=== PATIENT | female | born 1990 | race Caucasian/White ===

== ENCOUNTER 2018-04-17 00:44 | Inpatient (IN) ==
[2018-04-17] MEDS ORDERED: ZOLPIDEM 5 MG TABLET PO PRN (06:05)
[2018-04-17] MEDS ORDERED: MAG-AL + SIM ORAL LIQUID 30ml PO PRN ×2 (06:05→17:45)
[2018-04-17] MEDS ORDERED: LIDOCAINE 1% (10mg/ml) 2mL INJ PF SDV ID PRN (06:05)
[2018-04-17] MEDS ORDERED: SALINE FLUSH 10ml SYRINGE IV PRN ×2 (06:05)
[2018-04-17] MEDS ORDERED: ACETAMINOPHEN 500 MG TABLET PO PRN ×2 (06:05→17:45)
[2018-04-17] MEDS ORDERED: HYDROCODONE/APAP 5mg/325mg TABLET PO PRN (06:05)
[2018-04-17] MEDS ORDERED: CARBOPROST 250 MCG/ML INJECTION IM PRN (06:05)
[2018-04-17] MEDS ORDERED: METHYLERGONOVINE 0.2 MG/ML INJECTION IM PRN (06:05)
[2018-04-17] MEDS ORDERED: OXYTOCIN DRIP 30 UNIT/500 ML ML IV PRN ×2 (06:05→06:42)
--- OUTSIDE RECORDS SUMMARY | 2018-04-17 06:07 | External Medical Summary | Continuity of Care Document ---
:1990 Author Organization [facility] Address [address] [place], [place] [id number] Phone Care Team Providers Name Role Phone Adele Steward MD Unavailable Unavailable Allergies, Adverse Reactions, Alerts Substance Reaction Severity Status No Known Drug Allergies Unknown Active Medications Medication Instructions Dosage Effective Dates Status Comments (start - stop) Ventolin HFA 90 inhale 2 puff by - Active mcg/actuation inhalation route aerosol inhaler every 4 - 6 hours as needed as needed Symbicort 160 inhale 2 puff by Not Available - Active mcg-4.5 inhalation route 2 mcg/actuation HFA times every day in aerosol inhaler the morning and evening as needed Vitamin take 1 tablet by Not Available - Active tablet oral route every day Zyrtec 10 mg take 1 tablet by 10 MG - Active tablet oral route every day Problems Condition Effective Dates (start - stop) Clinical Status Suprvsn of preg w history of pre-term - labor, third trimester Supervision of other high risk - pregnancies, third trimester Obesity complicating , third - trimester Oth diseases and conditions compl - preg/chldbrth Suprvsn of preg w history of pre-term - labor, first trimester Supervision of other high risk - pregnancies, first trimester Obesity complicating , first - trimester Oth diseases and conditions compl - preg/chldbrth Supervision of other high risk - pregnancies, second trimester 24 weeks gestation of - Suprvsn of preg w history of pre-term - labor, second tri Supervision of other high risk - pregnancies, second trimester 17 weeks gestation of - Suprvsn of preg w history of pre-term - labor, second tri Supervision of other high risk - pregnancies, second trimester Obesity complicating , second - trimester Oth diseases and conditions compl - preg/chldbrth Suprvsn of preg w history of pre-term - labor, second tri Supervision of other high risk - pregnancies, second trimester Encounter For Other - Screening Follow-Up 24 weeks gestation of - Suprvsn of preg w history of pre-term - labor, second tri 17 weeks gestation of - Suprvsn of preg w history of pre-term - labor, third trimester Supervision of other high risk - pregnancies, third trimester Oth diseases and conditions compl - preg/chldbrth 34 weeks gestation of - Suprvsn of preg w history of pre-term - labor, third trimester Supervision of other high risk - pregnancies, third trimester Oth related conditions, - third trimester 28 weeks gestation of - Suprvsn of preg w history of pre-term - labor, third trimester Supervision of other high risk - pregnancies, third trimester Oth diseases and conditions compl - preg/chldbrth 36 weeks gestation of - Suprvsn of preg w history of pre-term - labor, third trimester Supervision of other high risk - pregnancies, third trimester Obesity complicating , third - trimester Oth diseases and conditions compl - preg/chldbrth Supervision of other high risk - pregnancies, second trimester Obesity complicating , second - trimester Oth diseases and conditions compl - preg/chldbrth 22 weeks gestation of - Supervision of other high risk - pregnancies, third trimester Oth diseases and conditions compl - preg/chldbrth Supervision of other high risk - pregnancies, third trimester Obesity complicating , third - trimester Oth diseases and conditions compl - preg/chldbrth 37 weeks gestation of - Supervision of other high risk - pregnancies, third trimester Oth related conditions, - third trimester Oth diseases and conditions compl - preg/chldbrth 31 weeks gestation of - Asthma Active Procedures Procedure Date OB Visit No Charge Cult, pathgnc orgnsm, screen Results Test Name Date and Time Measure Units Reference Range Abnormal Flag Comments Panel Description: Strep Gp B Culture Strep Gp B Negative Negative Centers for Disease Control Culture 11:28:00 and Prevention (CDC) and Citizen Of [place] Congressof Obstetricians and Gynecologists (ACOG) guidelines for prevention ofperinatal group B streptococcal (GBS) disease specify co-collection ofa vaginal and rectal swab specimen to maximize sensitivity of GBSdetection. Per the CDC and ACOG, swabbing both the lower vagina andrectum substantially increases the yield of detection compared withsampling the vagina alone. .Penicillin G, ampicillin, or cefazolin are indicated for intrapartumprophylaxis of GBS colonization. Reflex susceptibilitytesting should be performed prior to use of clindamycin only on GBSisolates from penicillin-allergic women who are considered a high riskfor anaphylaxis. Treatment with vancomycin without additional testingis warranted if resistance to clindamycin is noted. Advance Directives Directive Yes / No Effective Date File Name Unknown Encounters Encounter Practice Location Reason(s) Diagnoses Date Provider Care Team Description For Visit Members Real Morejon Supervision of Sobbing Referring In Womens other high risk 6-201 Rodriguez. Provider: [facility], pregnancies, [address] [facility] Box third Medical [place] L, 1522, trimesterOth Center [address], diseases [address], Medical [place], conditions compl Suite Center [id number], preg/chldbrth 120, Drive [place], [address], tel: [place], [address], [place], [address]. [place]. tel: tel: [phone] Real Morejon Supervision of Sobbing Referring In Womens other high risk 1-201 [place]. Provider: [facility], pregnancies, 8 [address] [facility] third Medical [place] L, 1522, trimesterObesity Center [address], [address], Medical [place], , third Suite Center [id number], trimesterOth 120, Drive [place] diseases and [place], [address], tel:2 conditions compl KSJean-Pierre, preg/hooassiq90 [address], [place], [address]. weeks gestation [place]. tel: of tel: [phone] [facility] Suprvsn of preg w Sobbing Referring In Womens history of - Rodriguez. Provider: Health [facility], pre-term labor, 8 [address] [facility] third Medical [place] L, 1522, trimesterSupervis Center [address], ion of other high [address], Medical [place], risk pregnancies, Suite Center [id number], third 120, Drive [place] trimesterOth [place], [address], tel:2 diseases and Jean-Pierre ROSADO, [place] [address], [place], [address]. preg/cyzoxkgs97 [place]. tel: weeks gestation tel: [phone] of [phone] Real Morejon Suprvsn of preg w Sobbing Referring In Womens history of 7-201 Rodriguez. Provider: [facility] [place], pre-term labor, [address] [facility] [facility] Box third Medical [place] L, 1522, trimesterSupervis Center [address], ion of other high Drive, Medical [place], risk pregnancies, Suite Center [id number], third [address], Drive [place] trimesterObesity Jean-Pierre, [address], tel:+[phone] complicating Jean-Pierre ROSADO, , third [address], [place], [address]. trimesterOth [place]. tel: diseases and tel: [phone] conditions compl [id number] preg/chldbrth [facility] Suprvsn of preg w Sobbing Referring In Womens history of 2-201 Rodriguez. Provider: Health [place], pre-term labor, 8 [address] third Medical [place] L, 1522, trimesterSupervis Center [address], ion of other high [address], Medical [place], risk pregnancies, Suite Center [id number], third [address], Drive [place] trimesterOth [place], [address], tel:+3162 diseases and [place]Jean-Pierre, [place] [address], [place], [address]. preg/uxtyqnuo18 [place]. tel:+316 weeks gestation tel: [phone] of [phone] Real Morejon Supervision of Sobbing Referring In Womens other high risk 5-201 Rodriguez. Provider: [facility], pregnancies, 8 [address] third Medical [place] L, 1522, trimesterOth Center [address] [place], [address], Medical [place], conditions, third Suite Center , trimesterOth 120, Drive [place] diseases and [place], [address], tel:+3162 conditions compl KSJean-Pierre, preg/omskuzlw44 [address], [place], [address]. weeks gestation [place]. tel:+316 of tel: [phone] Real Morejon Suprvsn of preg w Sobbing Referring In Womens history of 2-201 Rodriguez. Provider: Jessenia MELENDEZ, pre-term labor, 8 [address] third Medical [place] L, 1522, trimesterSupervis Center [address] [place], ion of other high Drive, Medical [place], risk pregnancies, Suite Center , third 120, Drive US trimesterObesity [place], [address], tel:+[phone] complicating Jean-Pierre ROSADO, , third [address], [place], [address]. trimesterOth [place]. tel:316 diseases and tel: [phone] conditions compl [id number] preg/chldbrth Real Morejon Suprvsn of preg w Sobbing Referring In Womens history of 9-201 Rodriguez. Provider: Jessenia MELENDEZ, pre-term labor, 8 [address] [place] [address] third Medical [place] L, 1522, trimesterSupervis Center [address] [place], ion of other high Drive, Medical [place], risk pregnancies, Suite Center [id number], third [address], Drive [place] trimesterOth [place], [address], tel:2 related ALONZO Jean-Pierre, conditions, [place] [address], [place], [address]. [id number] weeks [place]. tel:316 gestation of tel: [phone] [facility] Supervision of January-0 Sobbing Referring In Womens other high risk 7-201 Rodriguez. Provider: [facility], pregnancies, [address] [place] [address] second Medical [place] L, 1522, [id number] weeks Center [address] [place] [address], gestation of [facility], [facility] [place], Suite Center [id number], 120, Drive [place], [address], tel:2 [place]Jean[place], [address], [place], [address]. [place]. tel: tel: [phone] [facility] Suprvsn of preg w January- Sobbing Referring In Womens Ultrasound history of 7- Rodriguez. Provider: Jessenia MELENDEZ, pre-term labor, [address] [place] [address] second Medical [place] L, 1522, triSupervision of Center [address] [place] [address], other high risk [facility], [facility] [place], pregnancies, Suite Center [id number], second 120, Drive US trimesterEncounte [place], [address], tel:2 r For Other ALONZOJean-Pierre, [address], [place], [address]. Screening [place]. tel: Follow-Up24 weeks tel: [phone] gestation of [id number] [facility] Supervision of Dec-2 Sobbing Referring In Womens other high risk 0-201 Rodriguez. Provider: Jessenia PA, pregnancies, [address] [place] [address] second Medical Sob[place] L, 1522, trimesterObesity Center [address] [place] [address], complicating [facility], [facility] [place], , second Suite Center [id number], trimesterOth [address], Drive US diseases and Jean-Pierer, [address], tel:3162 conditions compl Jean-Pierre ROSADO, preg/cpxfyvnt43 [address], [place], [address]. weeks gestation [place]. tel:316 of tel: [phone] [facility] Suprvsn of preg w Sobbing Referring In Womens history of 9- Rodriguez. Provider: Health [place], pre-term labor, [address] [facility] [facility] Box second Medical [place] L, 1522, triSupervision of Center [address] [place] [place], other high risk Drive, Medical [place], pregnancies, Suite Center [id number], second 120, Drive US [id number] weeks [place], [address], tel:+3162 gestation of Jean-[place], [address], [place], [address]. [place]. tel: tel: [phone] Real Morejon Suprvsn of preg w Sobbing Referring In Womens Ultrasound history of 9 Rodriguez. Provider: Jessenia PA, pre-term labor, [address] Box second tri17 Medical [place] L, 1522, weeks gestation Center [address] [place] [address], of Drive, Medical [place], Suite Center , 120, Drive [place], [facility] 120, tel:+ [place]Jean-[place], [address], [place], [address]. [place]. tel: tel: [phone] Real Morejon Suprvsn of preg w Sobbing Referring In Womens history of Rodriguez. Provider: Jessenia MELENDEZ, pre-term labor, [address] [facility] Box second Medical [place] L, 1522, triSupervision of Center [address] [place] [address], other high risk [address], Medical [place], pregnancies, Suite Center [id number], second 120, Drive US trimesterObesity [place], [address], tel:+2 complicating ALONZOJean-Pierre, , second [address], [place], [address]. trimesterOth [place]. tel: diseases and tel: [phone] conditions compl [id number] preg/chldbrth Real Morejon Suprvsn of preg w Sobbing Referring In Womens history of Rodriguez. Provider: Jessenia MELENDEZ, pre-term labor, [address] [facility] [facility] Box first Medical [place] L, 1522, trimesterSupervis Center [address] [place] [place], ion of other high Drive, Medical [place], risk pregnancies, Suite Center [id number], first 120, Drive US trimesterObesity [place], [address], tel:+2 complicating ALONZOJean-Pierre, , [place] [address], [place], [address]. trimesterOth [place]. tel:+1-316 diseases and tel: [phone] conditions compl [id number] preg/chldbrth [facility] Sobbing In Womens 1-201 [facility], 7 [address], [place], [place], [address] [id number], 120, [place] Jean-Pierre, tel: [place], [address], [place]. tel: [phone] Family History Family Member Diagnosis Age At Onset No family history of Hypertension No family history of Stroke No family history of Diabetes No family history of Lung Disease No family history of Epilepsy No family history of Ovarian Cancer No family history of Thyroid Disorder No family history of Kidney Disease No family history of Breast Cancer No family history of Osteoporosis No family history of Cardiovascular Disease No family history of Colon Cancer Immunizations Vaccine Date Status Comments Tdap completed Source: New Immunization Record Influenza, injectable, completed Source: New Immunization Record quadrivalent, preservative free, 3 yrs or older Influenza, injectable, completed Source: Other Provider quadrivalent, preservative free, 3 yrs or older Tdap completed Source: Other Provider Payers Payer name Insurance type Covered alliance party ID Authorization(s) BCBS Out [place] [id number] BCBS [place] [id number] BCBS Out Of [place] [id number] Social History Type Description Quantity Date Captured Alcohol Use Details No Caffeine Use Details Unknown Tobacco Use Status Unknown Smoking Status Never smoker Vital Signs Date / Height Weight BMI Pulse Blood Temperature Respiratory Body Head BMI Time: Rate Pressure Rate Surface Circumference percentile Area 204.90 41.6 /2018 lbs 6 mm[Hg] 10:44 kg/m AM eter (2) Chief Complaint And Reason For Visit Unknown Chief Complaint And Reason For Visit Reason For Referral Reason For Referral Unknown Plan Of Care Date Type Action Status Future Order: Radiology Order Ultrasound OB Follow-up ([id number]) Ordered Future Order: Radiology Order Complete OB Ultrasound > 14 Weeks Ordered ([id number]) Future Order: Radiology Order Ultrasound OB, Transvaginal ([id number] ) Ordered Date Type Problem Goal Intervention Status Start Date Unknown. History Of Present Illness Encounter Date Complaint History Of Present Illness This patient has no known history of present illness Functional Status Encounter Date Functional Assessment Cognitive Assessment Unknown Medications Administered Medication Instructions Dosage Effective Dates (start - stop) Status Comments Drug Treatment Unknown Instructions Date Instruction Additional Information HIV and other routine tests risk factors identified by history anticipated course of care nutrition and weight gain counseling, special diet exercise indications for ultrasound influenza vaccine environmental / work hazards travel tobacco (ask, advise, assess, assist and arrange) alcohol illicit / recreational drugs use of any medications (including supplements, vitamins, herbs, OTC drugs) smoking counseling domestic violence seat belt use childbirth classes / hospital facilities hospital registration genetic testing new ob handbook risks toxoplasmosis precautions (cats / raw meat) sexual activity
--- OUTSIDE RECORDS SUMMARY | 2018-04-17 06:08 | External Medical Summary | Continuity of Care Document ---
:1990 Author Organization [facility] Address [address] [place], [place] [id number] Phone Care Team Providers Name Role Phone [...] Effective Dates (start - stop) Clinical Status Supervision of other high risk - pregnancies, third trimester Oth related conditions, - third trimester Oth diseases and conditions compl - preg/chldbrth 31 weeks gestation of - Suprvsn of preg [...] - preg/chldbrth 22 weeks gestation of - Asthma Active Procedures Procedure Date OB Visit No Charge Results Test Name Date and Time Measure Units Reference Range Abnormal Flag Comments Unknown Advance Directives Directive Yes / No Effective Date File Name Unknown Encounters Encounter Practice Location Reason(s) Diagnoses Date Provider Care Team Description For Visit Members [facility] Suprvsn of preg w Sobbing Referring In Womens history of 2-201 Rodriguez. Provider: Jessenia MELENDEZ, pre-term labor, 8 700 [facility] Box third Medical [place] L, 1522, trimesterSupervis Center [address] [place], ion of other high Drive, Medical [place], risk pregnancies, Suite Center [id number], third 120, Drive US trimesterOth Jean-Pierre [address], tel:+3162 diseases and KSJean-Pierre, [place] [address], [place], [address]. preg/reqgjjkk01 [place]. tel:+316 weeks gestation tel: [phone] of [phone] [facility] Supervision of Sobbing Referring In Womens other high risk 5-201 Rodriguez. Provider: Jessenia MELENDEZ, pregnancies, 8 700 [facility] Box third Medical [place] L, 1522, trimesterOth Center [address] [place], [address], Medical [place], conditions, third Suite Center [id number], trimesterOth [address], Drive US diseases and [place], [address], tel:+3162 conditions compl KSJean-Pierre, preg/nkyvvttf19 [address], [place], [address]. weeks gestation [place]. tel:316 of tel: [phone] Real More[place] Suprvsn of preg w Sobbing Referring In Womens history of 2-201 Rodriguez. Provider: Jessenia MELENDEZ, pre-term labor, 8 700 [facility] Box third Medical [place] L, 1522, trimesterSupervis Center [address], ion of other high Drive, Medical [place], risk pregnancies, Suite Center [id number], third [address], Drive US trimesterObesity [place], [address], tel:+3162 complicating KSJean-Pierre, , third [address], [place], [address]. trimesterOth [place]. tel:316 diseases and tel: [phone] conditions compl [id number] preg/chldbrth [facility] Suprvsn of preg w Sobbing Referring In Womens history of 9-201 Rodriguez. Provider: Jessenia MELENDEZ, pre-term labor, 8 700 [facility] Box third Medical [place] L, 1522, trimesterSupervis Center [address], ion of other high Drive, Medical [place], risk pregnancies, Suite Center [id number], third [address], Drive US trimesterOth Jean-Pierre, [address], tel: related ALONZO Jean-Pierre, conditions, third [address], [place], [address]. [id number] weeks [place]. tel: gestation of tel: [phone] [facility] Supervision of January-0 Sobbing Referring In Womens other high risk 7- [place]. Provider: Health PA, pregnancies, [address] [place] [address] second Medical [place]bing L, 1522, [id number] weeks Center [address] [place] [address], gestation of Drive, Medical [place], Suite Center [id number], 120, Drive [place], [address], tel: Jean-Pierre [place]AD[place], [address], [place], [address]. [place]. tel: tel: [phone] Real More[place] Suprvsn of preg w Sobbing Referring In Womens Ultrasound history of [place]. Provider: Health [place], pre-term labor, [address] [place] [address] second Medical [place] L, 1522, triSupervision of Center [address] [place] [address], other high risk [facility], Medical [place], pregnancies, Suite Center [id number], second 120, Drive US trimesterEncounte [place], [address], tel:2 r For Other ALONZO [place], [address], [place], [address]. Screening [place]. tel: Follow-Up24 weeks tel: [phone] gestation of [id number] [facility] Supervision of Dec-2 Sob[place] Referring In Womens other high risk 0-201 [place]. Provider: Health PA, pregnancies, [address] [place] [address] second Medical [place] L, 1522, trimesterObesity Center [address] [place] [address], complicating [facility], Medical [place], , second Suite Center [id number], trimesterOth [address], Drive US diseases and Jean-Pierre [address], tel:+2 conditions compl Jean-Pierre ROSADO, preg/ [address], [place], [address]. weeks gestation [place]. tel: of tel: [phone] Real Morejon Suprvsn of preg w Sobbing Referring In Womens history of Rodriguez. Provider: Jessenia MELENDEZ, pre-term labor, 8 700 [place] [address] second Medical Sob[place] L, 1522, triSupervision of Center [address], other high risk Drive, Medical [place], pregnancies, Suite Center [id number], second 120, Drive US [id number] weeks [place], [address], tel:+3162 gestation of [place]Jean-[place], [address], [place], [address]. [place]. tel: tel: [phone] Real Morejon Suprvsn of preg w Sobbing Referring In Womens Ultrasound history of Rodriguez. Provider: Jessenia MELENDEZ, pre-term labor, 8 700 [address] second tri17 Medical [place] L, 1522, weeks gestation Center [address] [place] [address], of Drive, Medical [place], Suite Center [id number], 120, Drive [place], [address], tel:+2 KSJean-[place], [address], [place], [address]. [place]. tel: tel: [phone] Real Morejon Suprvsn of preg w Sobbing Referring In Womens history of Rodriguez. Provider: Jessenia MELENDEZ, pre-term labor, 8 700 [facility] Box second Medical [place] L, 1522, triSupervision of Center [address] [place] [address], other high risk Drive, Medical [place], pregnancies, Suite Center [id number], second 120, Drive US trimesterObesity [place], [address], tel:+2 complicating ALONZOJean-Pierre, , second [address], [place], [address]. trimesterOth [place]. tel:316 diseases and tel: [phone] conditions compl [id number] preg/chldbrth Real Morejon Suprvsn of preg w Sobbing Referring In Womens history of - Rodriguez. Provider: Jessenia MELENDEZ, pre-term labor, 8 700 [place] [address] first Medical [place] L, 1522, trimesterSupervis Center [address] [place], ion of other high Drive, Medical [place], risk pregnancies, Suite Center [id number], first 120, Drive US trimesterObesity [place], [address], tel:+3162 complicating Jean-Pierre ROSADO, , [place] [address], [place], [address]. trimesterOth [place]. tel: diseases and tel: [phone] conditions compl [id number] preg/chldbrth [facility] Sobbing In Womens 1-201 [facility], 7 [address], [place], [place], [address] [id number], 120, [place], tel: [place], [address], [place]. tel: [phone] Family History Family Member Diagnosis Age At [...] Provider Payers Payer name Insurance type Covered republican ID Authorization(s) BCBS Out Of [place] [id number] BC[employer] Out [place] [id number] BCBS Out Of [place] [id number] Social History Type Description Quantity Date Captured Alcohol Use Details No Caffeine Use Details Unknown Tobacco Use Status Unknown Smoking Status Never smoker Vital Signs Date / Height Weight BMI Pulse Blood Temperature Respiratory Body Head BMI Time: Rate Pressure Rate Surface Circumference percentile Area 40.0 -2018 6 10:50 kg/m AM eter (2) 199.20 40.5 117/75 -2018 lbs 0 mm[Hg] 10:56 kg/m AM eter (2) Chief Complaint And Reason For Visit Unknown Chief Complaint And Reason For Visit Reason For Referral Reason For Referral Unknown Plan Of Care Date Type Action Status Appointment Marie Lobato BOOKED Future Order: Radiology Order Ultrasound OB Follow-up ([id number]) Ordered Future Order: Radiology Order Complete OB Ultrasound > 14 Weeks Ordered ([id number]) Future Order: Radiology Order Ultrasound OB, Transvaginal ([id number] ) Ordered Date Type Problem Goal Intervention [...]
--- OUTSIDE RECORDS SUMMARY | 2018-04-17 06:08 | External Medical Summary | Continuity of Care Document ---
:1990 Author Organization [facility] Address [address] [place], [place] [id number] Phone Care Team Providers Name Role Phone [...] third trimester 28 weeks gestation of - Supervision of other [...] For Visit Members Real Morejon Supervision of Jaren Referring In Womens other high risk 5-201 Rodriguez. Provider: [facility], pregnancies, 8 700 [address] third Medical [place] L, 1522, [facility] [address] [place], [address], Medical [place], conditions, third Suite Center [id number], trimesterOth 120, Drive [place] diseases and [place], [address], tel:2 conditions compl ALONZOJean-Pierre, preg/[id number] [address], [place], [address]. weeks gestation [place]. tel:316 of tel: [phone] Real Morejon Suprvsn of preg w Leonid- Sobbing Referring In Womens history of 2-201 Rodriguez. Provider: [facility], pre-term labor, 8 700 [address] third Medical [place], 1522, trimesterSupervis Center [address], ion of other high Drive, Medical [place], risk pregnancies, Suite Center [id number], third 120, Drive [place] trimesterObesity [place], [address], tel:+2 complicating ALONZOJean-Pierre, , third [address], [place], [address]. trimesterOth [place]. tel: diseases and tel: [phone] conditions compl [id number] preg/chldbrth Associates Jean-Pierre Suprvsn of preg w January-2 Sobbing Referring In Womens history of 9-201 Rodriguez. Provider: [facility], pre-term labor, 8 700 [address] third Medical [place], 1522, trimesterSupervis Center [address] [place], ion of other high Drive, Medical [place], risk pregnancies, Suite Center [id number], third 120, Drive [place] trimesterOth [place], [address], tel:+2 related ALONZOJean-Pierre, conditions, third [address], [place], [address]. [email or web address] weeks [place]. tel: gestation of tel: [phone] Real Morejon Supervision of January-0 Sobbing Referring In Womens other high risk 7-201 Rodriguez. Provider: [facility], pregnancies, 8 700 [address] second Medical [place] L, 1522, [id number] weeks Center [address], gestation of [address], Medical [place], Suite Center [id number], 120, Drive [place], [address], tel:3162 [place], [address], [place], [address]. [place]. tel: tel: [phone] Real Morejon Suprvsn of preg w May-0 Sobbing Referring In Womens Ultrasound history of 7- Rodriguez. Provider: Jessenia MELENDEZ, pre-term labor, 8 700 [facility] Box second Medical [place] L, 1522, triSupervision of Center [address] [place] [address], other [address] risk [address], Medical [place], pregnancies, Suite Center [id number], second 120, Drive US trimesterEncounte [place], [address], tel:316 r For Other Jean-Pierre [place]ADO, [address], [place], [address]. Screening [place]. tel: Follow-Up24 weeks tel: [phone] gestation of [id number] Associates Jean-Pierre Supervision of Apr-2 Sobbing Referring In Womens other high risk 0-201 Rodriguez. Provider: Jessenia MELENDEZ, pregnancies, 8 700 [facility] Box second Medical [place] L, 1522, trimesterObesity Center [address] [place] [address], [address], [facility] [place], , second Suite Center [id number], trimesterOth [address], Drive US diseases and Jean-Pierre, [address], tel: conditions compl Jean-Pierre ROSADO, preg/atphlvww64 [address], [place], [address]. weeks gestation [place]. tel:316 of tel: [phone] Real Morejon Suprvsn of preg w Nov- Sobbing Referring In Womens history of Rodriguez. Provider: Jessenia MELENDEZ, pre-term labor, 8 700 [facility] Box second Medical [place] L, 1522, triSupervision of Center [address] [place] [address], [address], Medical [place], pregnancies, Suite Center [id number], second 120, Drive US [id number] weeks [place], [address], tel:316 gestation of ALONZOJean-Pierre, [address], [place], [address]. [place]. tel: tel: [phone] Real Morejon Suprvsn of preg w Nov-1 Sobbing Referring In Womens Ultrasound history of Rodriguez. Provider: Jessenia MELENDEZ, pre-term labor, 8 700 [facility] Box second tri17 Medical [place] L, 1522, weeks gestation Center [address] [place] [address], of Drive, [facility] ALONZO, Suite Center [id number], 120, Drive [place] [address], tel:[phone] Jean-Pierre ROSADO, [address], [place], [address]. [place]. tel: tel: [phone] Real Morejon Suprvsn of preg w Sobbing Referring In Womens history of - Rodriguez. Provider: Jessenia MELENDEZ, pre-term labor, 8 700 [place] PO Box second Medical [place] L, 1522, triSupervision of Center [address] [place], other high risk Drive, Medical [place], pregnancies, Suite Center [id number], second 120, Drive US trimesterObesity Jean-Pierre, [address], tel:[phone] complicating Jean-Pierre ROSADO, , second [address], [place], [address]. trimesterOth [place]. tel: diseases and tel: [phone] conditions compl [id number] preg/chleleni [place] Suprvsn of preg w Sobbing Referring In Womens history of - Rodriguez. Provider: Jessenia MELENDEZ, pre-term labor, 8 700 [facility] Box first Medical [place] L, 1522, trimesterSupervis Center [address] [place], ion of other high Drive, Medical [place], risk pregnancies, Suite Center [id number], first 120, Drive [place] trimesterObesity [place], [address], tel:[phone] complicating Jean-Pierre ROSADO, , [place] [address], [place], [address]. trimesterOth [place]. tel: diseases and tel: [phone] conditions compl [id number] thelma/barbara [place] Sobbing In Womens - Rodriguez. Jessenia MELENDEZ, 7 700 PO [address] Medical [address], Center [place], Drive, [place], Suite [id number], 120, [place] Jean-Pierre, tel: ALONZO, [address], [place]. tel: [phone] Family History Family Member Diagnosis Age At [...] Provider Payers Payer name Insurance type Covered constitution party ID Authorization(s) [employer] Out [place] [id number] [employer] [place] [id number] [employer]BS Out Of [place] [id number] Social History Type Description Quantity Date Captured Alcohol Use Details No Caffeine Use Details Unknown Tobacco Use Status Unknown Smoking Status Never smoker Vital Signs Date / Height Weight BMI Pulse Blood Temperature Respiratory Body Head BMI Time: Rate Pressure Rate Surface Circumference percentile Area 39.6 3 10:43 kg/m AM eter (2) 197.00 40.0 125/66 2018 lbs 6 mm[Hg] 10:49 kg/m AM eter (2) Chief Complaint And Reason For Visit Unknown Chief Complaint And Reason For Visit Reason For Referral Reason For Referral Unknown Plan Of Care Date Type Action Status Appointment Marie Lobato BOOKED Future Order: Radiology Order Ultrasound OB Follow-up ([id number]) Ordered Future Order: Radiology Order Complete OB Ultrasound > 14 Weeks Ordered ([id number]) Future Order: Radiology Order Ultrasound OB, Transvaginal ([id number] ) Ordered Date Type Problem Goal Intervention [...]
--- OUTSIDE RECORDS SUMMARY | 2018-04-17 06:08 | External Medical Summary | Continuity of Care Document ---
:1990 Author Organization [facility] Address [address] [place], [place] [id number] Phone Care Team Providers Name Role Phone [...] Sobbing Referring In Womens other high risk Roff. Provider: [facility], pregnancies, 8 700 [place] PO [address] third Medical [place] L, 1522, trimesterObesity Center [address] [place], complicating [facility] [place], [facility] [place], , third Suite Center , trimesterOth 120, Drive [place] diseases and [place], [address], tel:+2 conditions compl Jean-Pierre ROSADO, preg/ [address], [place], [address]. weeks gestation [place]. tel: of tel: [phone] Real Contreras of preg w Sobbing Referring In Womens history of Rodriguez. Provider: Jessenia MELENDEZ, pre-term labor, 8 700 [place] [address] third Medical [place] L, 1522, trimesterSupervis Center [address] [place], ion of other high Drive, [facility] [place], risk pregnancies, Suite Center [id number], third 120, Drive US trimesterOth [place], [facility] 120, tel:+2 diseases and Jean-Pierre ROSAD[place], [place] [address], [place], [address]. preg/fjpsyxwu25 [place]. tel:316 weeks gestation tel: [phone] of [phone] Real Wardn of preg w Sobbing Referring In Womens history of 7-201 Rodriguez. Provider: Jessenia MELENDEZ, pre-term labor, 8 700 [place] [address] third Medical [place] L, 1522, trimesterSupervis Center [address] [place], ion of other high Drive, Medical [place], risk pregnancies, Suite Center [id number], third 120, Drive US trimesterObesity [place], [address], tel:[phone] complicating KSJean-Pierre, , third [address], [place], [address]. trimesterOth [place]. tel:316 diseases and tel: [phone] conditions compl [id number] preg/chldbrth Associates Jean-Pierre Suprvsn of preg w Sobbing Referring In Womens history of 2-201 Rodriguez. Provider: Jessenia PA, pre-term labor, 8 700 [place] [address] third Medical [place], 1522, trimesterSupervis Center [address] [place], ion of other high Drive, Medical [place], risk pregnancies, Suite Center [id number], third 120, Drive US trimesterOth [place], [address], tel:+2 diseases and [place], Jean-Pierre, [place] [address], [place], [address]. preg/[email or web address] [place]. tel:316 weeks gestation tel: [phone] of [id number] Real Morejon Supervision of Feb- Sobbing Referring In Womens other high risk 5-201 Rodriguez. Provider: Jessenia MELENDEZ, pregnancies, 8 700 [place] [address] third Medical [place] L, 1522, trimesterOth Center [address] [place], related Drive, Medical [place], conditions, third Suite Center [id number], trimesterOth 120, Drive US diseases and [place], [address], tel:3162 conditions compl Jean-Pierre ROSADO, preg/ [address], [place], [address]. weeks gestation [place]. tel: of tel: [phone] Real Morejon Suprvsn of preg w Sobbing Referring In Womens history of 2-201 Rodriguez. Provider: Jessenia MELENDEZ, pre-term labor, 8 700 [place] [address] third Medical [place] L, 1522, trimesterSupervis Center [address] [place], ion of other high Drive, Medical [place], risk pregnancies, Suite Center [id number], third 120, Drive US trimesterObesity Jean-Pierre, [address], tel:+2 complicating ALONZOJean-Pierre, , third [address], [place], [address]. trimesterOth [place]. tel: diseases and tel: [phone] conditions compl [id number] preg/chldbrth [facility] Jean-[place] Suprvsn of preg w January-2 Sobbing Referring In Womens history of 9- Rodriguez. Provider: Health [place], pre-term labor, 8 700 [facility] third Medical [place] L, 1522, trimesterSupervis Center [address] [place], ion of other high Drive, Medical [place], risk pregnancies, Suite Center [id number], third 120, Drive US trimesterOth [place], [address], tel:2 related ALONZOJean-Pierre, conditions, [place] [address], [place], [address]. [id number] weeks [place]. tel: gestation of tel: [phone] Associates Jean-Pierre Supervision of January-0 Sobbing Referring In Womens other high risk 7-201 Rodriguez. Provider: Jessenia MLEENDEZ, pregnancies, 8 700 [facility] Box second Medical [place] L, 1522, weeks Center [address] [place], gestation of Drive, [facility] [place], Suite Center , 120, Drive [place], [address], tel: ALONZOJean-Pierre, [address], [place], [address]. [place]. tel: tel: [phone] Real More[place] Suprvsn of preg w January-0 Sobbing Referring In Womens Ultrasound history of 7- Rodriguez. Provider: Jessenia MELENDEZ, pre-term labor, 8 700 [facility] Box second Medical [place] L, 1522, triSupervision of Center [address] [place], other high risk Drive, Medical [place], pregnancies, Suite Center [id number], second 120, Drive US trimesterEncounte [place], [address], tel:2 r For Other ALONZOJean-Pierre, [address], [place], [address]. Screening [place]. tel: Follow-Up24 weeks tel: [phone] gestation of [id number] Associates Jean-Pierre Supervision of Dec-2 Sobbing Referring In Womens other high risk 0-201 Rodriguez. Provider: Health PA, pregnancies, 8 700 [facility] Box second Medical [place] L, 1522, trimesterObesity Center [address] [place], complicating Drive, Medical [place], , second Suite Center [id number], trimesterOth 120, Drive US diseases and [place], [address], tel:+[phone] conditions compl ALONZO Jean-Pierre, preg/ [address], [place], [address]. weeks gestation [place]. tel:316 of tel: [phone] Real More[place] Suprvsn of preg w Nov- Sobbing Referring In Womens history of 9- Rodriguez. Provider: Jessenia MELENDEZ, pre-term labor, 8 700 [facility] Box second Medical [place] L, 1522, triSupervision of Center [address] [place], other high risk Drive, Medical [place], pregnancies, Suite Center [id number], second 120, Drive US [email or web address] weeks [place], [address], tel:+3162 gestation of ALONZOJean-Pierre, [address], [place], [address]. [place]. tel: tel: [phone] Real More[place] Suprvsn of preg w Nov- Sobbing Referring In Womens Ultrasound history of 9- Rodriguez. Provider: Jessenia MELENDEZ, pre-term labor, 8 700 [facility] Box second tri17 Medical [place] L, 1522, weeks gestation Center [address] [place], of Drive, [facility] [place], Suite Center [id number], 120, Drive [place], [address], tel:+2 Jean-Pierre [place], [address], [place], [address]. [place]. tel: tel: [phone] Real Morejon Suprvsn of preg w Oct- Sobbing Referring In Womens history of 3-201 Rodriguez. Provider: Jessenia MELENDEZ, pre-term labor, 8 700 [facility] Box second Medical [place] L, 1522, triSupervision of Center [address] [place] [address], other [address], Medical [place], pregnancies, Suite Center [id number], second 120, Drive US trimesterObesity [place], [address], tel:+3162 complicating Jean-Pierre ROSADO, , second [address], [place], [address]. trimesterOth [place]. tel:+1-316 diseases and tel:[phone] conditions compl [id number] preg/chleleni [place] Suprvsn of preg w Sobbing Referring In Womens history of Roff. Provider: Jessenia MELENDEZ, pre-term labor, 8 700 [place] [address] first Medical [place] L, 1522, trimesterSupervis Center [address] [place], ion of other high Drive, Medical [place], risk pregnancies, Suite Center [id number], first 120, Drive US trimesterObesity [place], [address], tel:2 complicating [place], [place], , [place] [address], [place], [address]. trimesterOth [place]. tel: diseases and tel: [phone] conditions compl [id number] thelma/barbara [place] Aug- Sobbing In Womens Roff. Jessenia MELENDEZ, 7 700 [address] Medical [address], Center [place], [facility] [place], [place], [id number], 120, [place] Jean-Pierre, tel: [place], [address], [place]. tel: [phone] Family History Family Member Diagnosis Age At [...] Provider Payers Payer name Insurance type Covered democrat ID Authorization(s) BCBS Out Of State [id number] BCBS Out Of [place] BL [id number] BCBS Out Of [place] BL [id number] Social History Type Description Quantity Date Captured Alcohol Use Details No Caffeine Use Details Unknown Tobacco Use Status Unknown Smoking Status Never smoker Vital Signs Date / Height Weight BMI Pulse Blood Temperature Respiratory Body Head BMI Time: Rate Pressure Rate Surface Circumference percentile Area 202.30 41.1 /75 2018 lbs 3 mm[Hg] 9:57 kg/m AM eter (2) Chief Complaint And Reason For Visit Unknown Chief Complaint And Reason For Visit Reason For Referral Reason For Referral Unknown Plan Of Care Date Type Action Status Appointment Luis Alfredo Marie BOOKED Future Order: Radiology Order Ultrasound OB Follow-up ([id number]) Ordered Future Order: Radiology Order Complete OB Ultrasound > 14 Weeks Ordered ([id number]) Future Order: Radiology Order Ultrasound OB, Transvaginal ([id number] ) Ordered Date Type Problem Goal Intervention [...]
[2018-04-17] MEDS: LR 1,000 ML IV PRN ×2 (06:33→10:44)
[2018-04-17] MEDS: D5LR 1,000 ML IV PRN ×2 (06:38→15:01)
[2018-04-17 06:50] VITALS: BMI 42.0
--- NOTE | 2018-04-17 08:12 | Anesthesia Preoperative Report ---
Anesthesia Epidural/Spinal Rec - Date and Time Date: 04/17/18 Preoperative Diagnosis: Induction of Labor Procedure: Labor Epidural Plan: Epidural - Vital Signs Vital Signs: Temperature 98.2 F 04/17/18 06:23 Pulse Rate 83 04/17/18 06:23 Respiratory Rate 18 04/17/18 06:23 Blood Pressure 120/70 04/17/18 06:23 Pulse Oximetry 97 04/17/18 06:23 /Para: P:1 - Medictaions & Allergies Inpatient Medications: Current Medications Acetaminophen (Tylenol) 500 - 1,000 mg PO Q4H PRN PRN Reason: Pain Hydrocodone Bitart/Acetaminophen ([place] 5/325) 1 - 2 tab PO Q4H PRN PRN Reason: Pain Al Hydroxide/Mg Hydroxide (Maalox Plus) 30 ml PO Q3H PRN PRN Reason: Indigestion Calcium Carbonate (Tums) 500 - 1,000 mg PO Q2H PRN PRN Reason: Indigestion Carboprost Tromethamine (Hemabate) 250 mcg IM O PRN PRN Reason: .Downtime Dextrose/Lactated Ringer's (Dextrose 5%-Lactated Ringers) 1,000 mls @ 125 mls/ hr IV .Q8H PRN PRN Reason: Labor Last Admin: 04/17/18 06:38 Dose: 125 mls/hr Lactated Ringer's (Lactated Ringers) 1,000 mls @ 999 mls/hr IV .Q1H1M PRN Last Admin: 04/17/18 06:33 Dose: 999 mls/hr Oxytocin (Pitocin Drip) 30 unit in 500 mls @ 2 mls/hr IV .Q24H PRN; Protocol PRN Reason: Induction/Augmentation Last Admin: 04/17/18 06:34 Dose: 2 mls/hr Oxytocin (Pitocin Drip) 30 unit in 500 mls @ 2 mls/hr IV .Q24H PRN; Protocol PRN Reason: Induction/Augmentation Lidocaine HCl (Xylocaine-Mpf 1% Vial) 0.2 mg ID O PRN PRN Reason: IV Start Methylergonovine Maleate (Methergine) 0.2 mg IM O PRN Misoprostol (Cytotec) 800 mcg PA ONCE PRN Sodium Chloride (Iv Flush) 10 - 80 ml IV PRN PRN PRN Reason: Flushing Sodium Chloride (Iv Flush) 10 - 80 ml IV PRN PRN PRN Reason: Flushing Zolpidem Tartrate (Ambien) 5 mg PO O PRN PRN Reason: Insomnia Allergies/Adverse Reactions: Allergies Allergy/AdvReac Type Severity Reaction Status Date / Time No Known Allergies Allergy Verified 02/02/18 08:06 - Home Medications Home Medications: Home Medications Medication Instructions Recorded Confirmed Type 1 tab PO DAILY 02/02/18 04/17/18 History vitamin,calcium,wzfmahsg-avea-zjsue acid tablet Symbicort (Budesonide 160 2 puff INH BID #10.2 g 02/08/18 04/17/18 Rx mcg-Formoterol 4.5 mcg)/actuation aerosol inhaler Acetaminophen [Tylenol] 500 mg PO PRN PRN 04/17/18 04/17/18 History Albuterol HFA Inhaler [Ventolin 2 puff ORAL INH Q4H PRN 04/17/18 04/17/18 History Hfa 90 mcg/actuation] Cetirizine HCl [Zyrtec] 1 tab PO DAILY 04/17/18 04/17/18 History raNITIdine HCl [Zantac] 150 mg PO DAILY 04/17/18 04/17/18 History - Medical History Respiratory: Reports: Asthma (takes ventilon and symbicort daily) Gastrointestional: Reports: Morbid Obesity Neuro/Musculoskeletal: Reports: Other (carpel tunnel) Other History: Reports: Now - Surgical History Reproductive Surgery/Treatment: DENIES: Section Anesthesia Reactions: None Hx Family Anesthesia Reaction: No History of Motion Sickness: No - Social History Smoking Status: Former smoker Second Hand Exposure: No Substance Use Type: does not use Alcohol Intake: current Alcohol Intake Frequency: a few times a month - Pertinent Findings Lab Data: CBC and BMP 04/17/18 06:21 - Physical Exam Respiratory Exam: lungs clear Cardiovascular Exam: regular rate and rhythm - Airway Assessment Mallampati Score: II TMD: 3 Fingerbreadths Neck Extension: fair Overall Assessment: may be difficult mask vent, may be difficult intubation - ASA ASA Score: 3 - Discussion Discussion: Discussed risks/options/alternatives of anesthesia and questions answered. Patient consents. Nursing pain assessment noted. Anesthesia Discussion: spouse Attestation Statement: Prior to the delivery of any anesthetic medication, I examined the patient, developed the plan, obtained the patient's consent and discussed the risk and benefits of the procedure with the patient/guardian.
[2018-04-17] MEDS ORDERED: ROPIVACAINE 1% 10MG/ML INJ 200 MG, SUFentanil 50 MCG in NS 100 ML EPI PRN (10:39)
[2018-04-17] MEDS ORDERED: ONDANSETRON 4 MG/2 ML INJECTION IVP PRN (10:39)
[2018-04-17] MEDS ORDERED: NALOXONE 0.4 MG/ML INJECTION IVP PRN (10:39)
[2018-04-17] MEDS ORDERED: DiphenhydrAMINE 50 MG/ML INJECTION IVP PRN (10:39)
[2018-04-17] MEDS: CALCIUM CARBONATE Chewable 500mg TABLET PO PRN ×3 (10:59→17:56)
[2018-04-17] MEDS ORDERED: CALCIUM CARBONATE Chewable 500mg TABLET PO PRN (17:45)
[2018-04-17] MEDS ORDERED: DiphenhydrAMINE 25 MG CAPSULE PO PRN (17:45)
[2018-04-17] MEDS ORDERED: HYDROCORTISONE 2.5% CREAM 30gm RECTALLY PRN (17:45)
--- NOTE | 2018-04-17 17:45 | OB/GYN Procedure Note ---
Delivery date: 04/17/18 Induction method: per misoprostol protocol Delivery augmentation: rupture of membranes Delivery monitor: external FHT, internal uterine Route of delivery: Laceration description: Cervical - 2nd Degree Delivery repair: vicryl Estimated blood loss (mL): 300 Anesthesia type: Epidural Disposition: floor - [place] Baby 1 Infant gender: Female presentation: Vertex Placenta delivery description: Spontaneous cord vessel description: 3 Vessels at 1 minute: 8 at 5 minutes: 9
[2018-04-17] MEDS: IBUPROFEN 800 MG TABLET PO PRN (17:56)
--- NOTE | 2018-04-17 19:46 | Labor and Delivery Note ---
DATE OF DELIVERY 04/17/2018 Normal spontaneous delivery of a live female in OP position that rotated to AGUSTIN over intact perineum with epidural anesthesia. There was no meconium noted or nuchal cord. There was a shoulder dystocia that resolved after Hilton suprapubic pressure and Sarabia maneuver. There was spontaneous delivery of the placenta with a three-vessel cord. There was a cervical laceration that was repaired with a lnulju-me-hytlc stitch of 2-0 chromic. Estimated blood loss was 300 mL. . Marie presented to labor and delivery for a logistics induction. She had Waddell bulb cervical ripening and Pitocin. She progressed slowly and was noted to be OP through labor and finally made it to AC with an anterior lip resolved and patient started pushing. She pushed for approximately 10 minutes and delivered the baby in the AGUSTIN position. Shoulder dystocia was noted at the time of delivery but was resolved with Hilton suprapubic pressure and Sarabia screw maneuver. Apgars were 8/9/9. Weight was 3095 and name was Ubaldo Lobato. [facility]
[2018-04-17] MEDS: Oxycodone/Acetaminophen 5/325 1 TAB PO PRN (21:27)
[2018-04-18] MEDS: Oxycodone/Acetaminophen 5/325 1 TAB PO PRN ×4 (01:18→18:13)
[2018-04-18] MEDS: IBUPROFEN 800 MG TABLET PO PRN ×3 (01:18→18:12)
[2018-04-18] MEDS ORDERED: DOCUSATE CALCIUM 240 MG CAPSULE PO SCH (09:00)
[2018-04-18] MEDS ORDERED: PRENATAL VITAMIN TABLET PO SCH (09:00)
--- NOTE | 2018-04-18 10:43 | Anesthesia Postoperative Note ---
- Date and Time Date: 04/18/18 Time: 10:42 - Status Patient Participated in Evaluation: Patient Participated in Person Vital Signs: Temperature 98.3 F 04/18/18 05:57 Pulse Rate 63 04/18/18 05:57 Respiratory Rate 16 04/18/18 05:57 Blood Pressure 97/60 04/18/18 05:57 Pulse Oximetry 97 04/18/18 05:57 Respiratory Function: Airway Patent, Regular Respirations Cardiovascular Function: Regular Pulse Mental Status: Alert and Oriented Pain Intensity: 3 (crampy feeling) Hydration: Taking PO Fluids Nausea/Vomiting: None Complications During Recover: None Apparent Post Anesthesia Care Notes: Denies residual numbness - Follow-Up Instructions Instructions: Per Surgeon
[2018-04-18 15:45] VITALS: BP 115/68; PULSE 79; RESP 18; TEMP 98.4; O2SAT 96
== END 2018-04-18 19:07 | disposition home or self-care (01) | DRG 775 ==
LOC: MC 06:02
PROVIDERS: ADMIT Obstetrics & Gynecology; ATTEND Obstetrics & Gynecology